=== PATIENT | female | born 1955 | race Caucasian/White ===

== ENCOUNTER → 2016-11-04 | Outpatient (CLI) | payer MEDICARE, MEDICAID | LOC: RAD 09:17 | PROVIDERS: ATTEND Nurse Practitioner Adult Health | DX: R91.1 Solitary pulmonary nodule (principal) | CPT/HCPCS: 71250 ==

== ENCOUNTER 2016-11-25 07:01 | Day surgery (SDC) | payer MEDICARE, MEDICAID ==
[2016-11-18 10:48] LABS: APPEARANCE,URINE CLEAR; BILIRUBIN,URINE NEGATIVE (NEGATIVE); GLUCOSE, URINE NEGATIVE (NEGATIVE); KETONES,URINE NEGATIVE (NEGATIVE); LEUKOCYTE ESTERASE,URINE NEGATIVE (NEGATIVE); NITRITE,URINE NEGATIVE (NEGATIVE); PROTEIN,URINE NEGATIVE (NEGATIVE); URINE SPECIFIC GRAVITY 1.003; UROBILINOGEN,URINE NEGATIVE mg/dL (<2.0)
--- NOTE | 2016-11-18 11:24 | EKG REPORT ---
SEVERITY:- BORDERLINE ECG - SINUS RHYTHM CONSIDER RVH OR POSTERIOR INFARCT : Confirmed by: Liliana White 18-Nov-2016 11:24:02
[2016-11-18 11:47] LABS: HEMATOCRIT 35.7 % (36.0-47.0); HEMOGLOBIN 11.9 g/dL (12.0-15.5); MEAN CORPUSCULAR HEMOGLOBIN 29.9 pg (27.0-33.4); MEAN CORPUSCULAR HGB CONC 33.5 g/dL (32.0-36.0); MEAN CORPUSCULAR VOLUME 89 fl (80-97); RED CELL DISTRIBUTION WIDTH 13.9 % (11.5-14.0); WHITE BLOOD COUNT 5.6 10^3/uL (4.0-10.5)
[2016-11-18 12:07] LABS: ANION GAP 11 (5-19); BLOOD UREA NITROGEN 9 mg/dL (7-20); CALCIUM 9.4 mg/dL (8.4-10.2); CARBON DIOXIDE 30 mmol/L (22-30); CHLORIDE 101 mmol/L (98-107); CREATININE RESULT 0.66 mg/dL (0.52-1.25); GLUCOSE 87 mg/dL (75-110); POTASSIUM 4.3 mmol/L (3.6-5.0); SODIUM 141.6 mmol/L (137-145)
[~2016-11-25 07:01] MED LIST: CLINDAMYCIN 600 MG/D5W RTU 600 MG/50 ML RTUPB IV PRN; LACTATED RINGERS 1000 ML IV PRN; LIDOCAINE 0.5% INJ-PF (5 MG/ML) 50 ML SDV SUBCUT PRN
[2016-11-25] MEDS ORDERED: BUPIVACAINE HCL 0.5 % INJ/PF 30 ML SDV ONE (07:57)
[2016-11-25] MEDS ORDERED: LIDOCAINE 1%/EPINEPHRINE INJ 20 ML VIAL ONE (07:57)
[2016-11-25] MEDS ORDERED: MIDAZOLAM 2 MG/2 ML INJ ONE (08:55)
[2016-11-25] MEDS ORDERED: PROPOFOL INJ 200 MG/20 ML VIAL IV ONE (08:55)
[2016-11-25] MEDS ORDERED: DEXMEDETOMIDINE INJ 80 MCG/20 ML VIAL IV ONE (08:55)
[2016-11-25] MEDS ORDERED: ACETAMINOPHEN 100 ML IV ONE (08:55)
[2016-11-25] MEDS ORDERED: FENTANYL CITRATE INJ/PF 100 MCG/2 ML AMPUL ONE (08:55)
[2016-11-25] MEDS ORDERED: PROMETHAZINE HCL INJ 25 MG/1 ML VIAL IV PRN ×2 (09:33)
[2016-11-25] MEDS ORDERED: FENTANYL CITRATE INJ/PF 100 MCG/2 ML AMPUL IV PRN ×3 (09:33)
[2016-11-25] MEDS ORDERED: MEPERIDINE HCL/PF INJ 25 MG/1 ML DISP.SYRIN IV PRN (09:33)
[2016-11-25] MEDS ORDERED: DIPHENHYDRAMINE HCL 50 MG/ML VIAL IV PRN (09:33)
[2016-11-25] MEDS ORDERED: MORPHINE SULFATE 10 MG/ML INJ IV PRN (09:33)
--- NOTE | 2016-11-25 09:41 | Operative Report ---
Operative Report DATE OF SURGERY: 11/25/16 PREOPERATIVE DIAGNOSIS: Right medial meniscal tear POSTOPERATIVE DIAGNOSIS: Right medial meniscal tear. Grade 1 chondromalacia medial compartment. Intact anterior cruciate ligament. Grade 1 chondral malacia lateral compartment. Lateral meniscal tear. Grade 2 chondral malacia the patellofemoral compartment OPERATION: Arthroscopic partial medial and lateral meniscectomy SURGEON: SHAILA PETERSON ANESTHESIA: GA PROCEDURE: With the patient supine on the operating table the right lower extremity is prepped and draped in a sterile fashion. The knee is insufflated with accommodation Marcaine, Xylocaine, and epinephrine for intraoperative vasoconstriction as well as postoperative analgesia. Subsequent medial lateral infrapatellar portals are created for reconstruction. Scope and debridements mentation. Joint is examined systematic fashion findings as above. Using electro-frequency ablation probe partial lateral meniscectomy is performed from approximately 7:00 on the face the dial to 11:00 on the face the dial. A partial medial meniscectomy performed from approximately 4:00 on the face the dial to 12:00 on the face the dial. The joint is examined Mrs. Aviva armstrong, again with no new findings. His patient's removed. Portals reapproximation interrupted nylon. A sterile compressive dressing was applied and the patient' s returned to PACU in satisfactory condition
[2016-11-25] MEDS ORDERED: ONDANSETRON 4 MG TAB.RAPDIS PO PRN (10:14)
[2016-11-25] MEDS ORDERED: OXYCODONE HCL IR 5 MG TABLET PO PRN (10:14)
[2016-11-25] MEDS ORDERED: METOCLOPRAMIDE HCL INJ/PF 10 MG/2 ML SDV ONE (10:15)
[2016-11-25] MEDS ORDERED: LIDOCAINE 2% INJ-PF (20 MG/ML) 10 ML AMPUL ONE (10:15)
[2016-11-25] MEDS ORDERED: KETOROLAC TROMETHAMINE 60 MG/2 ML SDV ONE (10:15)
[2016-11-25] MEDS ORDERED: ONDANSETRON HCL INJ/PF 4 MG/2 ML SDV ONE (10:15)
[2016-11-25] MEDS ORDERED: GLYCOPYRROLATE INJ 0.4 MG/2 ML VIAL ONE (10:15)
[2016-11-25] MEDS ORDERED: PHENYLEPHRINE HCL INJ/PF 10 MG/1 ML SDV ONE (10:15)
[2016-11-25 11:39] VITALS: BP 146/75
== END 2016-11-25 11:45 | disposition home or self-care (01) ==
LOC: OROUT 07:01
PROVIDERS: ATTEND Orthopaedic Surgery
PROC: 0SBC4ZZ Excision of Right Knee Joint, Percutaneous Endoscopic Approach (ICD-10-PCS; 2016-11-25)
PROC: 0SBC4ZZ Excision of Right Knee Joint, Percutaneous Endoscopic Approach (ICD-10-PCS; principal; 2016-11-25 09:00)
DX: M23.200 Derangement of unspecified lateral meniscus due to old tear or injury, right knee (principal); M23.203 Derangement of unspecified medial meniscus due to old tear or injury, right knee; M22.41 Chondromalacia patellae, right knee; E78.5 Hyperlipidemia, unspecified; D64.9 Anemia, unspecified; I10 Essential (primary) hypertension; K21.9 Gastro-esophageal reflux disease without esophagitis; M81.0 Age-related osteoporosis without current pathological fracture; J30.2 Other seasonal allergic rhinitis; F32.9 Major depressive disorder, single episode, unspecified; F41.9 Anxiety disorder, unspecified; Z88.0 Allergy status to penicillin; Z79.899 Other long term (current) drug therapy; Z79.1 Long term (current) use of non-steroidal anti-inflammatories (NSAID)
CPT/HCPCS: 93005; 36415; 85027; 80048; 81001; 71020; 93010; 29880; J2250; J1885; J3010; J3490 ×3; J2765; J2370; J2405; J2704; A9270; J0131; 1400

== ENCOUNTER → 2016-12-11 | Outpatient (CLI) | payer MEDICARE, MEDICAID ==
[2016-12-11 12:20] LABS: APPEARANCE,URINE SLIGHTLY-CLOUDY; BILIRUBIN,URINE NEGATIVE (NEGATIVE); GLUCOSE, URINE NEGATIVE (NEGATIVE); KETONES,URINE NEGATIVE (NEGATIVE); PROTEIN,URINE NEGATIVE (NEGATIVE); URINE SPECIFIC GRAVITY 1.007; UROBILINOGEN,URINE NEGATIVE mg/dL (<2.0)
[2016-12-11 12:21] LABS: BACTERIA,URINE TRACE /HPF; LEUKOCYTE ESTERASE,URINE NEGATIVE (NEGATIVE); NITRITE,URINE NEGATIVE (NEGATIVE)
[2016-12-11 12:41] LABS: ANION GAP 12 (5-19); BLOOD UREA NITROGEN 12 mg/dL (7-20); CALCIUM 9.2 mg/dL (8.4-10.2); CARBON DIOXIDE 26 mmol/L (22-30); CHLORIDE 101 mmol/L (98-107); CREATININE RESULT 0.74 mg/dL (0.52-1.25); GLUCOSE 108 mg/dL (75-110); POTASSIUM 4.4 mmol/L (3.6-5.0); SODIUM 139.1 mmol/L (137-145)
== END ==
LOC: OD 10:44
PROVIDERS: ATTEND Internal Medicine Nephrology
DX: R80.9 Proteinuria, unspecified (principal); R31.9 Hematuria, unspecified
CPT/HCPCS: 36415; 80048; 81001

== ENCOUNTER → 2017-11-21 | Outpatient (CLI) | payer MEDICARE, MEDICAID ==
--- NOTE | 2017-11-22 07:42 | RADIOLOGY REPORT (SQ) ---
EXAM DESCRIPTION: PET CT LIMITED COMPLETED DATE/TIME: 11/21/2017 6:27 pm REASON FOR STUDY: SOLITARY PULMONARY NODULE R91.1 SOLITARY PULMONARY NODULE J98.4 OTHER DISORDERS OF LUNG COMPARISON: CT chest 02/06/2016, 05/14/2016, 11/04/2016 RADIONUCLIDE AND DOSE: 11.6 mCi F18 FDG The route of agent administration: Intravenous FASTING BLOOD SUGAR: 95 mg/dl CONTRAST TYPE AND DOSE: No CT contrast given. TECHNIQUE: Blood glucose level was verified. Above dose of FDG was injected intravenously. 2-D seg mented attenuation correction images were obtained from the base of the skull to the midthighs. Nonc ontrast CT images were obtained for attenuation correction and fusion with emission images. CT image s were performed without oral or intravenous contrast and are not sensitive for parenchymal lesions. A series of overlapping emission PET images were obtained. Images reviewed and manipulated at [facility] work station by the radiologist. Images stored on PACS. LIMITATIONS: None. FINDINGS: HEAD AND NECK: No areas of abnormal metabolic activity in the soft tissues of the head and neck. CHEST: A partially calcified pleural-based anterior right upper lobe nodule is present measuring abou t 10 mm in size. This is non metabolic, with SUV of less than 0.8. There are stable postsurgical changes over the anterior left chest wall, with calcification and soft tissue density along the ventral aspect of the left pectoralis muscle measuring about 5 x 1.2 cm in s ize. This is stable over the series of CT exams, and has activity just above blood pool at 1.7 SUV. ABDOMEN AND PELVIS: No areas of abnormal metabolic activity in the abdomen or pelvis. Expected physi ologic activity is present in the genitourinary system and bowel. PROXIMAL LOWER EXTREMITIES: No areas of abnormal metabolic activity in the soft tissues of the lower extremities. BONES: No abnormal metabolic activity in the visualized skeleton. ADDITIONAL CT FINDINGS: Heavy atherosclerotic arterial vascular calcification 1 carotid bifurcations, coronary arteries, abdominal aorta, proximal bilateral common iliac arteries and left renal artery. Colonic diverticulosis without CT signs of acute diverticulitis. Post hysterectomy OTHER: Liver activity 2.3 SUV. Blood pool activity 1.6 SUV IMPRESSION: Non metabolic nodule in the anterior right upper lobe. TECHNICAL DOCUMENTATION: JOB ID: [id number] [employer]- All Rights Reserved
== END ==
LOC: RAD 14:39
PROVIDERS: ATTEND Internal Medicine Pulmonary Disease
DX: R91.1 Solitary pulmonary nodule (principal); J98.4 Other disorders of lung
CPT/HCPCS: 78814; A9552

== ENCOUNTER 2018-04-21 06:12 | Day surgery (SDC) | payer MEDICARE, MEDICAID ==
[2018-04-21] MEDS ORDERED: PROPOFOL INJ 200 MG/20 ML VIAL IV ONE ×2 (06:30→07:06)
[2018-04-21 07:01] LABS: HEMATOCRIT 36.3 % (36.0-47.0); HEMOGLOBIN 12.4 g/dL (12.0-15.5); MEAN CORPUSCULAR HEMOGLOBIN 29.8 pg (27.0-33.4); MEAN CORPUSCULAR HGB CONC 34.1 g/dL (32.0-36.0); MEAN CORPUSCULAR VOLUME 88 fl (80-97); PLATELET COUNT 225 10^3/uL (150-450); RED BLOOD COUNT 4.15 10^6/uL (3.72-5.28); RED CELL DISTRIBUTION WIDTH 13.5 % (11.5-14.0); WHITE BLOOD COUNT 7.2 10^3/uL (4.0-10.5)
[2018-04-21] MEDS ORDERED: LIDOCAINE 2% INJ-PF (20 MG/ML) 10 ML AMPUL ONE (07:11)
[2018-04-21] MEDS ORDERED: PROMETHAZINE HCL INJ 25 MG/1 ML VIAL IV PRN (07:40)
[2018-04-21] MEDS ORDERED: ONDANSETRON HCL INJ/PF 4 MG/2 ML SDV IV PRN (07:40)
[2018-04-21] MEDS ORDERED: DIPHENHYDRAMINE HCL 50 MG/ML VIAL IV PRN (07:40)
[2018-04-21] MEDS ORDERED: FENTANYL CITRATE INJ/PF 100 MCG/2 ML AMPUL IV PRN ×3 (07:40)
--- NOTE | 2018-04-21 08:10 | Discharge Summary ---
Discharge Summary (SDC) - Discharge Final Diagnosis: 1. External/internal hemorrhoids 2. Sigmoid diverticulosis Date of Surgery: 04/21/18 Discharge Date: 04/21/18 Condition: Good Treatment or Instructions: [address] [address] POST ENDOSCOPY DISCHARGE INSTRUCTIONS 1. Diet: Start clear liquids that a regular diet as tolerated. 2. Resume all preoperative medications. All oral anticoagulants and aspirins can be resumed 24 hours after procedure. 3. If a polypectomy was performed some bleeding per rectum may occur. This should stop within 3 days. If not, please contact the office. 4. If you had a colonoscopy you may experience some bloating and delayed return of normal bowel function for several days, your regular bowel movement pattern should resume within a week. 5. Please contact [facility] at to make an appointment with Dr. Adams for 1 to 3 weeks following procedure. 6. If you have any questions or concerns regarding your care,treatment plan or follow up, please contact our office. 7. Per clinical guidelines we recommend you undergo a repeat colonoscopy in 8 years. Discharge Diet: Regular Discharge Activity: Activity As Tolerated Home Care Assistance: None Needed Report the Following to Your Physician Immediately: Shortness of Breath, Increase in Pain, Fever over 101 Degrees
--- NOTE | 2018-04-21 08:14 | Operative Report ---
Operative Report DATE OF SURGERY: 04/21/18 PREOPERATIVE DIAGNOSIS: 1. Internal/external hemorrhoids. 2. Remote history of colon polyp POSTOPERATIVE DIAGNOSIS: 1. Internal/external hemorrhoid. 2. Sigmoid diverticulosis. 3. No evidence of colonic polyp OPERATION: Total colonoscopy to cecum with photodocumentation SURGEON: OLIMPIA CARNES ANESTHESIA: LMAC TISSUE REMOVED OR ALTERED: None COMPLICATIONS: None ESTIMATED BLOOD LOSS: None INTRAOPERATIVE FINDINGS: See below PROCEDURE: Obtaining informed consent the patient was taken from the preoperative holding area to the main endoscopy suite where monitoring devices were attached to the patient. Plan and surgical timeout were conducted The patient was placed in the left lateral decubitus position with knees to chest. A perianal examination was performed. There were external and internal hemorrhoids, with some excoriation; no evidence of thrombosis or true polyp The flexible adult colonoscope was advanced through the anal rectal canal, all the way to the cecum. Visualization of the cecum was achieved and the ileocecal valve, the appendiceal orifice and transillumination of the anterior abdominal wall. This was an acceptable study on the reasonably well-prepped bowel. There was a moderate amount of fecal matter that needed suctioning ; the colonoscope was withdrawn slowly and the mucosa was methodically checked morning. There was no evidence of tumor, stricture, bleeding or polyp. There was no evidence of diverticuloses. The scope was slowly withdrawn through the anal rectal canal. Complete visualization of the rectum was achieved with photodocumentation. Photos again of the external hemorrhoids documenting excoriation and prolapse recorded for the record. The scope was withdrawn to the patient's anus. The patient tolerated the procedure well and was taken to the recovery area in stable condition. Recommendations: 1. Patient will be offered operative hemorrhoidectomy at a later time. 2. Role of fiber, and rectal formula to address chronic constipation will be reinforced. 3. Patient be appropriate candidate for follow-up colonoscopy in 5-8 years.
[2018-04-21 09:12] VITALS: BP 118/53
== END 2018-04-21 09:15 | disposition home or self-care (01) ==
LOC: OROUT 06:12
PROVIDERS: ATTEND Surgery
DX: K64.8 Other hemorrhoids (principal); K64.4 Residual hemorrhoidal skin tags; K57.30 Diverticulosis of large intestine without perforation or abscess without bleeding; M79.7 Fibromyalgia; I10 Essential (primary) hypertension; M54.9 Dorsalgia, unspecified; M19.90 Unspecified osteoarthritis, unspecified site; F32.9 Major depressive disorder, single episode, unspecified; R01.1 Cardiac murmur, unspecified; Z87.891 Personal history of nicotine dependence; Z88.0 Allergy status to penicillin; Z86.010 Personal history of colon polyps
CPT/HCPCS: 45378; 36415; 85027; J2704; J3490; 812

== ENCOUNTER → 2018-06-02 | Day surgery (SDC) | payer MEDICARE, MEDICAID ==
--- NOTE | 2018-06-02 14:01 | RADIOLOGY REPORT (SQ) ---
EXAM DESCRIPTION: ARTHRO HIP INJ W/ANESTHESIA; FLUORO/NEEDLE PLACEMENT COMPLETED DATE/TIME: 06/02/2018 1:19 pm; 06/02/2018 1:20 pm REASON FOR STUDY: PAIN IN RIGHT HIP,CHRONIC PAIN SYNDROME M25.551 PAIN IN RIGHT HIP G89.4 CHRONIC PAIN SYNDROME COMPARISON: RIGHT HIP FILMS 07/21/2016 FLUOROSCOPY TIME: 13 seconds 1 digital fluoroscopic image saved to PACS. LIMITATIONS: None. PROCEDURE: Procedure, risks, benefits and alternatives explained to patient who then gave written c onsent. The right hip was marked and a time-out was called for correct marking verification. Entry site marked using fluoroscopic guidance. Hip prepped and draped using sterile technique. Local ane sthesia achieved using 5 mL of 1% lidocaine injection. 22 gauge spinal needle introduced into the maritza int space under direct fluoroscopic visualization. Non-ionic contrast instilled to confirm intra-art icular position. Dilute gadolinium solution then injected. Needle removed and entry site covered w ith sterile bandage. No immediate complications noted. TECHNIQUE: Digital images acquired during fluoroscopy and stored on PACS. Patient immediately take n to the MR suite for additional imaging. INJECTION LOCATION: Right hip joint CONTRAST TYPE AND AMOUNT: 1 mL of Isovue-300 was injected to confirm intra-articular needle placement followed by 10 mL of dilute Prohance/Saline mixture. IMPRESSION: SUCCESSFUL NEEDLE PLACEMENT AND INJECTION FOR RIGHT HIP MR ARTHROGRAM. COMMENT: Quality ID 145: Final reports for procedures using fluoroscopy that document radiation exp osure indices, or exposure time and number of fluorographic images (if radiation exposure indices are not available) TECHNICAL DOCUMENTATION: JOB ID: [id number] [employer]- All Rights Reserved Reading location - IP/workstation name: [facility]
--- NOTE | 2018-06-02 14:01 | RADIOLOGY REPORT (SQ) ---
EXAM DESCRIPTION: ARTHRO HIP INJ W/ANESTHESIA; FLUORO/NEEDLE PLACEMENT COMPLETED DATE/TIME: 06/02/2018 1:19 pm; 06/02/2018 1:20 pm REASON FOR STUDY: PAIN IN RIGHT HIP,CHRONIC PAIN SYNDROME M25.551 PAIN IN RIGHT HIP G89.4 CHRONIC PAIN SYNDROME COMPARISON: RIGHT HIP FILMS 07/21/2016 FLUOROSCOPY TIME: 13 seconds 1 digital fluoroscopic image saved to PACS. LIMITATIONS: None. PROCEDURE: Procedure, risks, benefits and alternatives explained to patient who then gave written c onsent. The right hip was marked and a time-out was called for correct marking verification. Entry site marked using fluoroscopic guidance. Hip prepped and draped using sterile technique. Local ane sthesia achieved using 5 mL of 1% lidocaine injection. 22 gauge spinal needle introduced into the maritza int space under direct fluoroscopic visualization. Non-ionic contrast instilled to confirm intra-art icular position. Dilute gadolinium solution then injected. Needle removed and entry site covered w ith sterile bandage. No immediate complications noted. TECHNIQUE: Digital images acquired during fluoroscopy and stored on PACS. Patient immediately take n to the MR suite for additional imaging. INJECTION LOCATION: Right hip joint CONTRAST TYPE AND AMOUNT: 1 mL of Isovue-300 was injected to confirm intra-articular needle placement followed by 10 mL of dilute Prohance/Saline mixture. IMPRESSION: SUCCESSFUL NEEDLE PLACEMENT AND INJECTION FOR RIGHT HIP MR ARTHROGRAM. COMMENT: Quality ID 145: Final reports for procedures using fluoroscopy that document radiation exp osure indices, or exposure time and number of fluorographic images (if radiation exposure indices are not available) TECHNICAL DOCUMENTATION: JOB ID: [id number] [employer]- All Rights Reserved Reading location - IP/workstation name: [facility]
--- NOTE | 2018-06-02 14:48 | RADIOLOGY REPORT (SQ) ---
EXAM DESCRIPTION: MRI RT LOWER JOINT WITH COMPLETED DATE/TIME: 06/02/2018 2:26 pm REASON FOR STUDY: PAIN IN RIGHT HIP,CHRONIC PAIN SYNDROME M25.551 PAIN IN RIGHT HIP G89.4 CHRONIC PAIN SYNDROME COMPARISON: None. TECHNIQUE: Post arthrogram imaging is performed using T1 and T1 and T2 fat saturated sequences of th e pelvis and specific hip of interest. LIMITATIONS: None. FINDINGS: RIGHT HIP JOINT DISTENSION: Adequate. No loose body. BONE MARROW: No edema. No marrow replacement. FEMORAL HEAD, NECK, AND ACETABULUM: No occult fracture. No osteophytes or subchondral cysts. Normal s phericity of femoral head/neck junction. No acetabular dysplasia. No evidence of femoroacetabular imp ingement. LABRUM AND CARTILAGE: Small anterior superior labral tear, best shown on coronal series 6, images 11- 13. no paralabral cysts. Cartilage of normal thickness without delamination. PUBIC RAMI AND ISCHIUM: No occult fracture. SACRUM AND SAM: SI joints normal in signal. No occult fracture. EFFUSIONS: None. MUSCLES AND SOFT TISSUES: Adductors and piriformis normal. Abductors and greater trochanteric bursa n ormal without edema or fluid. Iliopsoas bursa without fluid. Hamstring attachments without edema or t ear. PELVIC SOFT TISSUES: No masses or adenopathy. Post hysterectomy SCIATIC NERVE: Identified without masses. OTHER: No other significant finding. IMPRESSION: Small anterior superior right acetabular labral tear. No paralabral cyst TECHNICAL DOCUMENTATION: JOB ID: [id number] [employer]- All Rights Reserved Reading location - IP/workstation name: [facility]
== END ==
LOC: RAD 12:39
PROVIDERS: ATTEND Physician Assistant Medical
DX: M25.551 Pain in right hip (principal); G89.4 Chronic pain syndrome
CPT/HCPCS: 73722; 77002; 27095; A9576

== ENCOUNTER 2018-07-27 08:23 | Day surgery (SDC) | payer MEDICARE, MEDICAID ==
[2018-07-19 11:01] LABS: HEMATOCRIT 33.9 % (36.0-47.0); HEMOGLOBIN 11.7 g/dL (12.0-15.5); MEAN CORPUSCULAR HEMOGLOBIN 30.1 pg (27.0-33.4); MEAN CORPUSCULAR HGB CONC 34.5 g/dL (32.0-36.0); MEAN CORPUSCULAR VOLUME 88 fl (80-97); PLATELET COUNT 249 10^3/uL (150-450); RED BLOOD COUNT 3.88 10^6/uL (3.72-5.28); RED CELL DISTRIBUTION WIDTH 12.9 % (11.5-14.0); WHITE BLOOD COUNT 4.9 10^3/uL (4.0-10.5)
[2018-07-19 11:22] LABS: ANION GAP 7 (5-19); BLOOD UREA NITROGEN 11 mg/dL (7-20); CALCIUM 9.5 mg/dL (8.4-10.2); CARBON DIOXIDE 32 mmol/L (22-30); CHLORIDE 101 mmol/L (98-107); GLUCOSE 96 mg/dL (75-110); POTASSIUM 4.3 mmol/L (3.6-5.0); SODIUM 140.3 mmol/L (137-145)
--- NOTE | 2018-07-19 12:28 | EKG REPORT ---
SEVERITY:- NORMAL ECG - SINUS RHYTHM : Confirmed by: Liliana White 19-Jul-2018 12:27:27
[2018-07-27] MEDS ORDERED: CLINDAMYCIN 600 MG/D5W RTU 600 MG/50 ML RTUPB IV ONE (09:35)
[2018-07-27] MEDS ORDERED: SUCCINYLCHOLINE CHLORIDE INJ 200 MG/10 ML VIAL ONE (10:31)
[2018-07-27] MEDS ORDERED: DEXAMETHASONE SOD PHOSPHATE INJ 4 MG/1 ML VIAL ONE (10:52)
[2018-07-27] MEDS ORDERED: KETOROLAC TROMETHAMINE 60 MG/2 ML SDV ONE (10:52)
[2018-07-27] MEDS ORDERED: ONDANSETRON HCL INJ/PF 4 MG/2 ML SDV ONE (10:52)
[2018-07-27] MEDS ORDERED: FENTANYL CITRATE INJ/PF 100 MCG/2 ML AMPUL ONE (10:52)
[2018-07-27] MEDS ORDERED: MIDAZOLAM 2 MG/2 ML INJ ONE (10:52)
[2018-07-27] MEDS ORDERED: ACETAMINOPHEN 1,000 MG/100 ML RTUPB IV ONE (10:53)
[2018-07-27] MEDS ORDERED: PROPOFOL INJ 200 MG/20 ML VIAL IV ONE (10:53)
[2018-07-27] MEDS ORDERED: BUPIVACAINE HCL 0.5 % INJ/PF 30 ML SDV ONE (10:57)
[2018-07-27] MEDS ORDERED: BUPIVACAINE INJ/PF LIPOSOME/PF 266 MG/20 ML SDV ONE (10:57)
[2018-07-27] MEDS ORDERED: OXYCODONE-ACETAMINOPHEN 5-325 MG TABLET PO PRN ×3 (11:29→12:27)
[2018-07-27] MEDS ORDERED: FENTANYL CITRATE INJ/PF 100 MCG/2 ML AMPUL IV PRN ×3 (11:29)
[2018-07-27] MEDS ORDERED: MEPERIDINE HCL/PF INJ 25 MG/1 ML DISP.SYRIN IV PRN (11:29)
[2018-07-27] MEDS ORDERED: ONDANSETRON HCL INJ/PF 4 MG/2 ML SDV IV PRN (11:29)
[2018-07-27] MEDS ORDERED: PROMETHAZINE HCL INJ 25 MG/1 ML VIAL IV PRN ×2 (11:29)
[2018-07-27] MEDS ORDERED: MORPHINE SULFATE 10 MG/ML INJ IV PRN (11:29)
[2018-07-27] MEDS ORDERED: DIPHENHYDRAMINE HCL 50 MG/ML VIAL IV PRN (11:29)
[2018-07-27] MEDS ORDERED: EPHEDRINE SULFATE INJ 50 MG/1 ML AMPULE ONE (11:31)
--- NOTE | 2018-07-27 12:27 | Discharge Summary ---
Discharge Summary (SDC) - Discharge Final Diagnosis: MULTIPLE HEMORRHOIDS Date of Surgery: 07/27/18 Discharge Date: 07/27/18 Treatment or Instructions: [facility] [address] [place] [id number] Hemorrhoid or Anal Surgery Discharge Instructions 1. General Information: a. DO NOT DRIVE a car or operate dangerous machinery for 4-7 days. b. DO NOT consume alcohol, tranquilizers, sleeping medications or any non- prescribed medications for 24 hours unless approved by your doctor or as long as taking narcotic prescription medications. c. DO NOT make important decisions or sign any important papers for the next 24 hours. d. Have a responsible person with you tonight. 2. Activity Restrictions: 4 weeks. a. Avoid heavy lifting or straining until you feel more comfortable. b. It is fine to go for walks, up and down steps, ride in a car. 3. Treatment: a. Tomorrow morning begin warm water sitz baths (soaks) with plain water. You may do 3-4 times per day or after bowel movements to help relieve spasm and pain. Place a dry gauze or panty liner over the sight to catch drainage and blood to help keep your clothing dry. b. You may use Tucks or other medicated wipes to help clean the area as needed. 4. Medications: a. You may take the prescription tablets for pain one tablet every 6 hours. (_ TORADOL___). c. Resume all normal medications unless a change is specified by your doctors. d. Stool softeners are encouraged to help you for 2-4 weeks to maintain a soft stool and avoid more painful bowel movements due to pain medication. Colace is often used. e. A numbing cream may be prescribed, this can be applied after sitz baths around the perianal area before the sight is covered with a gauze pad. f. Constipation is very common after anal surgery and you may take over-the- counter medications to help stimulate the bowel such as Milk of Magnesia, Senokot tablets, prune juice and drink plenty of water. 5. Diet: a. Begin with clear liquids and if you do well you may then advance to normal foods low in fat and protein at first. Smaller portion size may be reyes the first night. b. Acidic (orange juice, tomato), foods high in ruffage (grapes, celery, asparagus) and spicy foods should be avoided for comfort the first 2-3 weeks since they can cause more burning sensation with bowel movements. 6..Follow Up Care: a. Please call the office to schedule a follow up appointment with your doctor for 2 weeks. In the event of any postoperative problems or questions or you may call the office during business hours or the On-Call physician evenings and weekends at [facility]. [facility] [phone] I understand the instructions for my postoperative care as described above and a copy has been given to me. Patient/Significant Other Witness Date Prescriptions: Ketorolac Tromethamine [Toradol 10 mg Tablet] 10 mg PO Q6HP PRN #20 tablet PRN Reason: Referrals: PAULO FONTAINE NP [Primary Care Provider] - Discharge Diet: As Tolerated Discharge Activity: No Lifting Over 10 Pounds, No Lifting/Push/Pulling, Walk Frequently Report the Following to Your Physician Immediately: Increase in Pain, Fever over 101 Degrees, Unusual Bleeding, Redness, Increased Soreness, Drainage-Foul Smelling
--- NOTE | 2018-07-27 12:29 | Operative Report ---
Operative Report DATE OF SURGERY: 07/27/18 PREOPERATIVE DIAGNOSIS: Multiple circumferential internal/external hemorrhoids POSTOPERATIVE DIAGNOSIS: Same OPERATION: 1. Examination under anesthesia. 2. 3 compartment hemorrhoidectomy with primary closure. 3. Local anesthetic with Exparel SURGEON: OLIMPIA ORTA APPARATUS LINEMAN: UREIL BETHEA ANESTHESIA: GA TISSUE REMOVED OR ALTERED: Multiple hemorrhoids submitted in one container COMPLICATIONS: None ESTIMATED BLOOD LOSS: 40 cc INTRAOPERATIVE FINDINGS: See below PROCEDURE: The patient was taken to the preop holding her to the main operating room where general anesthesia was induced. She was then placed in the prone, jackknife position, buttocks spread, and cheeks taped widely apart. The perianal and perineal tissue was prepped and draped in sterile fashion Surgical plan and surgical timeout conducted. External anal examination reveals circumferential internal and external hemorrhoids in the left posterior left anterior and right lateral positions. The anal canal was dilated up to accept to adult fingers. The bullet anoscope was inserted into the anal canal, careful examination of the dentate line, and upper rectum performed. There was no evidence of fistula polyp or other pathology We elected to proceed with 3 compartment hemorrhoidectomy. The first hemorrhoid cluster removed was in the right lateral position. The bullet anoscope was positioned accordingly, a 4-0 chromic suture was placed at the rectal mucosa above the packs of the hemorrhoid. The hemorrhoid was excised using a #15 blade, all associated hemorrhoidal tissue including venous complex below the squamous mucosal flaps. Specimen was sent in one container. Hemostasis was very good. The right hemorrhoidectomy defect was closed with a running 4-0 chromic suture in a locking fashion, pexing the anorectal tissue to the mucosa. The identical procedure was performed in the patient's left anterior position and the left posterior position for a total of 3 hemorrhoidectomy 's. All specimens sent in the same container. At the conclusion of the operation, there was no evidence of active bleeding, or hematoma. We were very satisfied with the repair. Of note the external anal sphincter was maintained in view throughout the entire dissection without evidence of violation. 20 cc of full-strength Exparel was injected into the jose-rectal and perianal subcutaneous tissue. Patient tolerated procedure well, extubated, and taken to recovery room stable condition. The physician specimen preparation assistant, Ms. Coyne, provided assistance during this case by: Assisting and port insertion, retracting tissue, instillation of local anesthesia and closure of skin incisions.
[2018-07-27] MEDS ORDERED: OXYCODONE-ACETAMINOPHEN 5-325 MG TABLET ONE (13:00)
[2018-07-27 14:33] VITALS: BP 144/78
== END 2018-07-27 14:05 | disposition home or self-care (01) ==
LOC: OROUT 08:23
PROVIDERS: ATTEND Surgery
DX: K64.8 Other hemorrhoids (principal); K64.4 Residual hemorrhoidal skin tags; R07.9 Chest pain, unspecified; I10 Essential (primary) hypertension; M19.90 Unspecified osteoarthritis, unspecified site; R01.1 Cardiac murmur, unspecified; F11.90 Opioid use, unspecified, uncomplicated; M54.9 Dorsalgia, unspecified; J45.909 Unspecified asthma, uncomplicated; M79.7 Fibromyalgia; Z87.891 Personal history of nicotine dependence; Z79.899 Other long term (current) drug therapy; Z79.82 Long term (current) use of aspirin; Z88.0 Allergy status to penicillin; Z88.1 Allergy status to other antibiotic agents; Z86.010 Personal history of colon polyps
CPT/HCPCS: 93005; 36415; 85027; 80048; 88305 ×2; 93010; 46260; J2250; J3490 ×2; J1100; J1885; J3010; A9270; J0330; J2405; J2704; J0131; C9290; 902

== ENCOUNTER → 2019-01-26 | Outpatient (CLI) | payer MEDICARE, MEDICAID ==
--- NOTE | 2019-01-26 13:31 | RADIOLOGY REPORT (SQ) ---
EXAM DESCRIPTION: CT LUNG CANCER SCREENING COMPLETED DATE/TIME: 01/26/2019 10:22 am REASON FOR STUDY: PERSONAL HISTORY OF NICOTINE DEPENDENCE Z87.891 PERSONAL HISTORY OF NICOTINE DEPE NDENCE Has the patient had a Chest CT scan within the past year? Was the patient offered tobacco cessation counseling? Was the patient engaged in shared decision making for this test? Does the patient have signs or symptoms of Lung Cancer? Is the patient a smoker? How many pack years? How many years since quitting smoking? Patients age: COMPARISON: None. TECHNIQUE: Low Dose CT scan performed of the chest without intravenous contrast for purposes of scre ening for lung cancer. Images reviewed with lung, soft tissue and bone windows. Reconstructed coron al and sagittal MPR images reviewed. All images stored on PACS. All CT scanners at this facility use dose modulation, iterative reconstruction, and/or weight based d osing when appropriate to reduce radiation dose to as low as reasonably achievable (ALARA). [facility]: Dose Right [facility]: CareDose [facility]: Dose Right [facility]: Teradose 4D [facility]: [employer] RADIATION DOSE: CT Rad equipment meets quality standard of care and radiation dose reduction techniq ues were employed. CTDIvol: 1.9 mGy. DLP: 70 mGy-cm. mGy. . LIMITATIONS: No technical limitations. FINDINGS: LUNG NODULES: Description: Calcified granuloma right upper lobe. REMAINING LUNGS AND PLEURA: No pleural effusions or calcifications. No pneumothorax. No fibrosi s. HILAR AND MEDIASTINAL STRUCTURES: No identified masses. No abnormal nodes. HEART AND VASCULAR STRUCTURES: No aortic aneurysm. No pericardial effusion. No cardiac devices. CORONARY ARTERY CALCIFICATIONS: Marked calcifications. UPPER ABDOMEN: Splenic varices. THYROID AND OTHER SOFT TISSUES: Calcifications anterior chest wall. BONES: Nothing acute. OTHER: No other significant findings. IMPRESSION: BENIGN FINDINGS IN THE LUNGS. OTHER FINDINGS ABOVE. LUNGRADS: LUNGRADS: 2 BENIGN APPEARANCE OR BEHAVIOR. NODULES WITH A VERY LOW LIKELIHOOD OF BECOMIN G A CLINICALLY ACTIVE CANCER DUE TO SIZE OR LACK OF GROWTH. MODIFIER: NONE. RECOMMENDATION: Continue annual screening with LDCT in 12 months. COMMENT: CRITERIA: Solid nodule(s): < 6 mm; new < 4 mm. Part solid nodule(s): < 6 mm total diameter on baseline screening. Non solid nodule(s) (GGN): < 20 mm OR ? 20 and unchanged or slowly growing. Category 3 or 4 modules unchanged for ? 3 months. TECHNICAL DOCUMENTATION: JOB ID: [id number] Quality ID # [id number]: Final reports with documentation of one or more dose reduction techniques (e.g., Au tomated exposure control, adjustment of the mA and/or kV according to patient size, use of iterative reconstruction technique) 2010 [facility] Reading location - IP/workstation name: [email or web address] INCLUDE [email or web address] BEDS AT THE [facility]
== END ==
LOC: RAD 10:15
PROVIDERS: ATTEND Internal Medicine Pulmonary Disease
DX: Z87.891 Personal history of nicotine dependence (principal)
CPT/HCPCS: G0297

== ENCOUNTER → 2019-03-03 | Outpatient (CLI) | payer MEDICARE, MEDICAID ==
--- NOTE | 2019-03-03 12:56 | RADIOLOGY REPORT (SQ) ---
EXAM DESCRIPTION: MRI LUMBAR SPINE WITHOUT COMPLETED DATE/TIME: 03/03/2019 12:38 pm REASON FOR STUDY: OTHER INTERVERTEBRAL DISC DISPLACEMENT, LUMBAR REGION M51.26 OTHER INTERVERTEBRAL DISC DISPLACEMENT, LUMBAR REGION M54.16 RADICULOPATHY, LUMBAR REGION COMPARISON: None. TECHNIQUE: Sagittal and Axial imaging includes T1, T2, STIR and gradient echo sequences. Coronal T2/ HASTE imaging. LIMITATIONS: None. FINDINGS: VISUALIZED UPPER ABDOMEN: Limited evaluation. No acute or suspicious findings suggested. SEGMENTATION: No transitional anatomy. The lowest well-developed disc space is labeled L5-S1. ALIGNMENT: Anatomic. VERTEBRAE: Intact. BONE MARROW: Normal. No marrow replacement or reactive changes. DISC SIGNAL: Normal. No significant abnormal signal or loss of height. POSTERIOR ELEMENTS: Generally intact. No pars defect evident. HARDWARE: None in the spine. CORD AND CONUS: Normal in size and signal intensity. Conus at the L1 level. SOFT TISSUES: No aortic aneurysm seen. No bulky retroperitoneal adenopathy or mass. No paraspinal mas s or fluid. L1-L2: No significant spinal stenosis or exit foraminal stenosis. L2-L3: No significant spinal stenosis or exit foraminal stenosis. L3-L4: No significant spinal stenosis or exit foraminal stenosis. L4-L5: Very shallow all disc bulge with no central canal or foraminal stenosis. Indents the thecal s ac and may displace the traversing nerve root. See image 22 series 6. L5-S1: Mild right foraminal disc protrusion does not appear to entrap the exiting nerve root. This d oes mildly deform the thecal sac as best seen on image 18 series 7. LOWER THORACIC: Incompletely imaged. No stenosis seen. SACRUM: Visualized upper sacrum intact. OTHER: No other significant findings. IMPRESSION: Shallow disc bulge and facet arthropathy at L4-5 as described. Right foraminal disc pro trusion at L5-S1 as described. TECHNICAL DOCUMENTATION: JOB ID: [id number] [employer]- All Rights Reserved Reading location - IP/workstation name: [email or web address]
== END ==
LOC: RAD 11:54
PROVIDERS: ATTEND Physician Assistant
DX: M51.26 Other intervertebral disc displacement, lumbar region (principal); M54.16 Radiculopathy, lumbar region
CPT/HCPCS: 72148

== ENCOUNTER → 2019-08-23 | Outpatient (CLI) | payer MEDICARE, MEDICAID | LOC: OD 11:42 | PROVIDERS: ATTEND Internal Medicine Pulmonary Disease | DX: L29.9 Pruritus, unspecified (principal) | CPT/HCPCS: 36415; 82785; 86003 ==

== ENCOUNTER → 2020-02-02 | Outpatient (CLI) | payer MEDICARE, MEDICAID ==
--- NOTE | 2020-02-02 10:08 | RADIOLOGY REPORT (SQ) ---
EXAM DESCRIPTION: CT LUNG CANCER SCREENING IMAGES COMPLETED DATE/TIME: 02/02/2020 9:34 am REASON FOR STUDY: Z87.891 PERSONAL HISTORY OF NICOTINE DEPENDENCE Z87.891 PERSONAL HISTORY OF NICOT INE DEPENDENCE Has the patient had a Chest CT scan within the past year? N Was the patient offered tobacco cessation counseling? N Was the patient engaged in shared decision making for this test? Y Does the patient have signs or symptoms of Lung Cancer? N Is the patient a smoker? N How many pack years? 50 How many years since quitting smoking? 6 Patients age: 64 COMPARISON: CT of the chest without contrast from 01/26/2019 TECHNIQUE: Low Dose CT scan performed of the chest without intravenous contrast for purposes of scre ening for lung cancer. Images reviewed with lung, soft tissue and bone windows. Reconstructed coron al and sagittal MPR images reviewed. All images stored on PACS. All CT scanners at this facility use dose modulation, iterative reconstruction, and/or weight based d osing when appropriate to reduce radiation dose to as low as reasonably achievable (ALARA). [facility]: Dose Right [facility]: CareDose [facility]: Dose Right [facility]: Teradose 4D [facility]: [employer] RADIATION DOSE: CT Rad equipment meets quality standard of care and radiation dose reduction techniq ues were employed. CTDIvol: 1.9 mGy. DLP: 73 mGy-cm. LIMITATIONS: No technical limitations. FINDINGS: LUNG NODULES: The 3 mm subpleural nodule in the apical segment of the right upper lobe (image 38 of series 3), the solid 3 mm nodule in the apical segment of the right upper lobe (image 56 of series 3), and the 7 mm ground-glass nodular opacity in the superior segment of the right upper lobe (image 124 of series 3) are stable. The pleural based nodules/plaques with calcifications in the anterior and anterolateral aspect of the right hemithorax that measure up to 10 x 10 mm are also stable. There is no new or enl arging pulmonary nodule. REMAINING LUNGS AND PLEURA: The trachea and main bronchi are patent. There is mild bilateral bron chial wall thickening without bronchiectasis or mucus plugging. There is no consolidation, periphera l reticulation, honeycombing, pleural effusion or pneumothorax. HILAR AND MEDIASTINAL STRUCTURES: No adenopathy or mass. HEART AND VASCULAR STRUCTURES: There is atherosclerotic calcification of the thoracic aorta and coron tamie arteries. The left ventricle is enlarged. There is no pericardial effusion. CORONARY ARTERY CALCIFICATIONS: Moderate UPPER ABDOMEN, THYROID, BONES, OTHER SOFT TISSUES: Unchanged dystrophic calcifications in the bilater al pectoralis. There is no adenopathy or acute osseous abnormality. IMPRESSION: STABLE FINDINGS DETAILED ABOVE. LUNGRADS: LUNGRADS: 2 BENIGN APPEARANCE OR BEHAVIOR. NODULES WITH A VERY LOW LIKELIHOOD OF BECOMING A CLINICALLY ACTIVE CANCER DUE TO SIZE OR LACK OF GROWTH. MODIFIER: NONE. RECOMMENDATION: Continue annual screening with LDCT in 12 months. COMMENT: CRITERIA: Solid nodule(s): < 6 mm; new < 4 mm. Part solid nodule(s): < 6 mm total diameter on baseline screening. Non solid nodule(s) (GGN): < 20 mm OR ? 20 and unchanged or slowly growing. Category 3 or 4 nodules unchanged for ? 3 months. TECHNICAL DOCUMENTATION: JOB ID: [id number] Quality ID # [id number]: Final reports with documentation of one or more dose reduction techniques (e.g., Au tomated exposure control, adjustment of the mA and/or kV according to patient size, use of iterative reconstruction technique) 2010 [facility], [place] Radiology Reading location - IP/workstation name: [email or web address]
== END ==
LOC: RAD 09:16
PROVIDERS: ATTEND Internal Medicine Pulmonary Disease
DX: Z87.891 Personal history of nicotine dependence (principal)
CPT/HCPCS: G0297

== ENCOUNTER → 2020-08-21 | Outpatient (CLI) | payer MEDICARE, MEDICAID ==
--- NOTE | 2020-08-21 17:09 | RADIOLOGY REPORT (SQ) ---
EXAM DESCRIPTION: KNEE RIGHT 4 VIEWS IMAGES COMPLETED DATE/TIME: 08/21/2020 3:46 pm REASON FOR STUDY: (M25.561)PAIN IN RIGHT KNEE M25.561 PAIN IN RIGHT KNEE COMPARISON: 08/23/2015. NUMBER OF VIEWS: Four views. TECHNIQUE: AP, lateral, and both oblique radiographic images acquired of the right knee. LIMITATIONS: None. FINDINGS: MINERALIZATION: Normal. BONES: No acute fracture or dislocation. No worrisome bone lesions. Small osteophytes on the posterio r patella. JOINT: No effusion. No chondrocalcinosis. OTHER: No other significant finding. IMPRESSION: SMALL OSTEOPHYTES ON THE PATELLA. NO ACUTE FINDINGS. TECHNICAL DOCUMENTATION: JOB ID: [id number] 2010 [employer]- All Rights Reserved Reading location - IP/workstation name: [email or web address]
== END ==
LOC: RAD 15:26
PROVIDERS: ATTEND Nurse Practitioner Family
DX: M25.761 Osteophyte, right knee (principal); M25.561 Pain in right knee